=== PATIENT | male | born 1970 | race Caucasian/White ===

== ENCOUNTER 2021-06-11 08:16 | Outpatient (CLI) | payer OTHER | END 2021-06-11 08:17 | disposition home or self-care (01) | LOC: NUCLEAR 08:16 | DX: I73.9 Peripheral vascular disease, unspecified (principal) ==

== ENCOUNTER 2021-06-12 07:53 | Outpatient (CLI) | payer OTHER | END 2021-06-12 07:54 | disposition home or self-care (01) | LOC: NUCLEAR 07:53 | DX: I87.2 Venous insufficiency (chronic) (peripheral) (principal); I73.9 Peripheral vascular disease, unspecified ==